=== PATIENT | male | born 1955 | race Caucasian/White ===

== ENCOUNTER 2021-03-04 19:07 | Emergency (ER) | payer OTHER, SELFPAY ==
--- NOTE | ~2021-03-04 | XR_ITS ---
EXAMINATION: XR finger 4th LT min 2V INDICATION: Left fourth finger pain TECHNIQUE: Four views of the left fourth finger are obtained. COMPARISON: None available FINDINGS: There is hyperextension at the fourth proximal interphalangeal joint and flexion at the fou rth distal interphalangeal joint. No fracture is identified. The joint spaces are normal. IMPRESSION: 1. Imaging findings suggestive of dorsal tendinous avulsion at the distal interphalangeal joint. Reviewed, dictated and finalized at location A. IMPRESSION: 1. Imaging findings suggestive of dorsal tendinous avulsion at the distal inter phalangeal joint.
[2021-03-04 19:09] VITALS: BP 163/80; PULSE 70; RESP 18; TEMP 36.9; O2SAT 100
--- NOTE | 2021-03-04 20:03 | ED.GENADULT ---
HPI - General Adult General Chief complaint: Extremity Injury, Upper Stated complaint: finger injury Time Seen by Provider: 03/04/21 19:10 Source: patient and RN notes reviewed Mode of arrival: ambulatory Limitations: no limitations History of Present Illness HPI narrative: Patient is 65-year-old male who presents with left ring finger injury that occurred just prior to arrival was playing with his kids believe that he jammed his finger but has since been unable to extend at the DIP joint patient denies other injuries or complaints presents in no distress notes minimal to no pain Related Data Allergies Allergy/AdvReac Type Severity Reaction Status Date / Time No Known Drug Allergies Allergy Unknown Verified 12/13/16 10:39 Review of Systems Review of Systems: Narrative: CONSTITUTIONAL: Denies fever, chills, or sweats. SKIN: Denies bruising or swelling MUSCULOSKELETAL: Positive for joint pain NEUROLOGIC: Denies numbness PMFSH Family History Family History (Updated 11/27/16 @ 15:38 by DOCTOR UNKNOWN) Mother Hypertension Family history of cardiovascular disease Father Family history of coronary artery disease Cerebrovascular accident Social History Social History Smoking status: Never smoker Alcohol intake: current Exam Narrative: Exam Narrative: GENERAL: Well-appearing, well-nourished, and in no acute distress. HEAD: Normocephalic, atraumatic. EYES: PERRLA and EOMI. ENT: Nares clear, no rhinorrhea or epistaxis. Mucous membranes moist. EXTREMITIES: N tenderness and inability to extend at the DIP joint of the left ring finger SKIN: Warm, dry, no rash. NEURO: No focal deficits. Alert and oriented x3. Neurovascularly PSYCH: Normal mood and affect. Course Course Emergency Course: Patient in the room in no distress aware of case findings treatment plan diagnosis Vital Signs Vital signs: Vital Signs Temperature 98.4 F 03/04/21 19:09 Pulse Rate 70 03/04/21 19:09 Respiratory Rate 18 03/04/21 19:09 Blood Pressure 163/80 H 03/04/21 19:09 Pulse Oximetry 100 03/04/21 19:09 Temperature 98.4 F 03/04/21 19:09 Pulse Rate 70 03/04/21 19:09 Respiratory Rate 18 03/04/21 19:09 Blood Pressure 163/80 H 03/04/21 19:09 Pulse Oximetry 100 03/04/21 19:09 Medical Decision Making MDM Narrative Medical decision making narrative: Patients injury or pain is consistent with musculoskeletal etiology. No signs of neurological or vascular compromise on exam. Compartments and tisues are soft without signs of compartment syndrome. Pain is felt appropriate for further evaluation on an outpatient basis. Vital Signs Vital Signs: Vital Signs Temperature 98.4 F 03/04/21 19:09 Pulse Rate 70 03/04/21 19:09 Respiratory Rate 18 03/04/21 19:09 Blood Pressure 163/80 H 03/04/21 19:09 Pulse Oximetry 100 03/04/21 19:09 Temperature 98.4 F 03/04/21 19:09 Pulse Rate 70 03/04/21 19:09 Respiratory Rate 18 03/04/21 19:09 Blood Pressure 163/80 H 03/04/21 19:09 Pulse Oximetry 100 03/04/21 19:09 Imaging Data Radiologist's impression: ITS Impressions Finger X-Ray 03/04/21 19:31 IMPRESSION: 1. Imaging findings suggestive of dorsal tendinous avulsion at the distal interphalangeal joint. Discharge Plan Discharge Clinical Impression: Extensor tendon disruption Patient Disposition: Home, Self-Care Condition: Stable Instructions: Antibiotic Form, Arthralgia (ED) Additional Instructions: Follow-up with hand surgeon on Saturday for reevaluation Wear metal finger splint with rest ice and elevation Take medications as directed Prescriptions: New meloxicam 15 mg tablet 15 mg PO DAILY Qty: 7 RF: 0 Follow-up/Referrals: Lowell Duval MD [Primary Care Provider] - Tin Zhong MD [Physician] -
[2021-03-04 20:13] VITALS: BP 158/72; PULSE 68; RESP 16; O2SAT 99
== END 2021-03-04 20:15 | disposition home or self-care (01) ==
PROVIDERS: Emergency Provider Emergency Medicine; PCP Family Medicine
DX: S66.305A Unspecified injury of extensor muscle, fascia and tendon of left ring finger at wrist and hand level, initial encounter (principal); X58.XXXA Exposure to other specified factors, initial encounter
CPT/HCPCS: 29130; 73140; 99283